=== PATIENT | female | born 1990 | race Caucasian/White ===

== ENCOUNTER 2024-11-15 17:33 | Inpatient (IN) | payer OTHER ==
[~2024-11-15] VITALS: Ht 172.7 cm; Wt 81.8 kg
[2024-11-15] MEDS: ONDANSETRON 4 MG TABLET PO ONE (17:52)
[2024-11-15] MEDS: ACETAMINOPHEN 500 MG TABLET PO ONE (17:52)
[2024-11-15 18:06] LABS: PLATELET COUNT (AUTO) 284 K/uL (150-450); RED BLOOD CELL COUNT(AUTO) 5.10 MIL/uL (4.00-5.20); RED CELL DISTRIBUTION WIDTH 13.3 % (11.5-14.5); WHITE BLOOD COUNT (AUTO) 7.0 K/uL (4.5-11.0)
[2024-11-15 18:14] LABS: CALCIUM, TOTAL 9.2 mg/dL (8.8-10.5); CREATININE 0.81 mg/dL (0.60-1.30); GLOMERULAR FILTR. RATE CALC > 60 mL/min (>60); GLUCOSE,RANDOM 107 mg/dL (70-110); SODIUM SERUM 139 mmol/L (136-145); UREA NITROGEN, BLOOD 8 mg/dL (7-18)
[2024-11-15 18:18] LABS: ALCOHOL, BLOOD (SERUM) < 3 mg/dL (0-10)
[2024-11-15 18:19] LABS: ASPARTATE AMINOTRANSFERASE 14 U/L (15-37); TOTAL PROTEIN, SERUM 7.4 g/dL (6.4-8.2)
[2024-11-15 18:23] LABS: TROPONIN I-HIGH SENSITIVITY Less Than 4 ng/L (<51)
[2024-11-15] MEDS ORDERED: LORazepam 2 MG/ML VIAL IVP PRN (19:15)
[2024-11-15] MEDS ORDERED: ONDANSETRON HCL 4 MG/2 ML VIAL IVP PRN (19:15)
[2024-11-15] MEDS: DOCUSATE SODIUM 100 MG CAPSULE PO SCH (20:11)
[2024-11-15 21:15] VITALS: BP 110/88; PULSE 99; RESP 21; TEMP 98.1; O2SAT 98
[2024-11-15] MEDS: NICOTINE 7 MG/24 HOUR PATCH TD ONE (22:04)
[2024-11-15] MEDS: ACETAMINOPHEN 325 MG TABLET PO PRN (22:04)
[2024-11-15] MEDS: HEPARIN SODIUM,PORCINE 5,000 UNITS/ML VIAL SQ SCH (23:39)
[2024-11-15] MEDS: KETOROLAC TROMETHAMINE 15 MG/ML VIAL IVP PRN (23:40)
[2024-11-16 01:30] VITALS: BP 107/82; PULSE 104; RESP 24; TEMP 97.9; O2SAT 100
[2024-11-16 05:03] VITALS: BP 112/61; PULSE 54; RESP 18; TEMP 98.1; O2SAT 98
[2024-11-16 07:51] LABS: PLATELET COUNT (AUTO) 275 K/uL (150-450); RED BLOOD CELL COUNT(AUTO) 5.10 MIL/uL (4.00-5.20); RED CELL DISTRIBUTION WIDTH 13.3 % (11.5-14.5); WHITE BLOOD COUNT (AUTO) 7.5 K/uL (4.5-11.0)
[2024-11-16 08:02] LABS: RBC MORPHOLOGY COMMENT ABNORMAL RBC MORPH
[2024-11-16 08:06] LABS: CALCIUM, TOTAL 9.1 mg/dL (8.8-10.5); CREATININE 0.76 mg/dL (0.60-1.30); GLOMERULAR FILTR. RATE CALC > 60 mL/min (>60); GLUCOSE,RANDOM 94 mg/dL (70-110); SODIUM SERUM 142 mmol/L (136-145); UREA NITROGEN, BLOOD 10 mg/dL (7-18)
[2024-11-16 08:17] VITALS: BP 116/84; PULSE 89; RESP 20; TEMP 98; O2SAT 98
[2024-11-16] MEDS ORDERED: DICYCLOMINE HCL 10 MG CAPSULE PO PRN (11:15)
[2024-11-16] MEDS ORDERED: PROMETHAZINE HCL 25 MG TABLET PO PRN (11:15)
[2024-11-16] MEDS ORDERED: BACLOFEN 10 MG TABLET PO PRN (11:15)
[2024-11-16] MEDS ORDERED: LOPERAMIDE HCL 2 MG/15 ML SUSPENSION UDCUP PO PRN (11:15)
[2024-11-16] MEDS ORDERED: MAG HYDROX/ALUMINUM HYD/SIMETH ES 30 ML SUSPENSION UDCUP PO PRN (11:15)
[2024-11-16] MEDS ORDERED: ACETAMINOPHEN 325 MG TABLET PO PRN (11:15)
[2024-11-16 11:30] VITALS: BP 120/71; PULSE 88; RESP 16; TEMP 97.7; O2SAT 99
[2024-11-16] MEDS: SODIUM CHLORIDE 0.45% 1,000 ML IV SCH (11:57)
[2024-11-16] MEDS: NICOTINE 14 MG/24 HOUR PATCH TD SCH (12:08)
[2024-11-16] MEDS: IBUPROFEN 600 MG TABLET PO PRN (12:59)
[2024-11-16 16:00] VITALS: BP 112/67; PULSE 99; RESP 18; TEMP 98.2; O2SAT 99
[2024-11-16 19:16] VITALS: BP 116/67; PULSE 97; RESP 18; TEMP 98.6; O2SAT 100
[2024-11-17 05:05] VITALS: BP 108/75; PULSE 91; RESP 18; TEMP 97.9; O2SAT 99
[2024-11-17 08:01] VITALS: BP 92/73; PULSE 98; RESP 18; TEMP 98.2; O2SAT 98
[2024-11-17 20:42] VITALS: BP 111/79; PULSE 95; RESP 20; TEMP 97.9; O2SAT 98
== END 2024-11-18 02:30 | DRG 897 ==
LOC: EMS 17:33 → EDH 19:05 → 6S 21:01
PROVIDERS: ADMIT Internal Medicine; ATTEND Internal Medicine
DX: F11.13 Opioid abuse with withdrawal (principal); R65.10 Systemic inflammatory response syndrome (SIRS) of non-infectious origin without acute organ dysfunction; F31.9 Bipolar disorder, unspecified; F41.9 Anxiety disorder, unspecified
CPT/HCPCS: 71045; 80048; 80076; 83735; 84484; 84703; 85025; 93005; 96374; 99285; G0480; J1630; J1644; J1885; Q0162; 36415-L1; 36415-TC